=== PATIENT | female | born 1995 | race African-American/Black ===

== ENCOUNTER 2019-06-05 12:07 | Emergency (ER) | payer SELFPAY ==
[~2019-06-05] VITALS: Ht 162.6 cm; Wt 55.0 kg
[2019-06-05 12:28] VITALS: BP 110/95
== END 2019-06-05 13:27 | disposition home or self-care (01) ==
LOC: ER 12:07
DX: S90.111A Contusion of right great toe without damage to nail, initial encounter (principal); W22.8XXA Striking against or struck by other objects, initial encounter; Y93.89 Activity, other specified; Y92.89 Other specified places as the place of occurrence of the external cause; R03.0 Elevated blood-pressure reading, without diagnosis of hypertension
CPT/HCPCS: 99281